=== PATIENT | male | born 1950 | race Native Hawaiian/Other Pacific Islander ===

== ENCOUNTER 2016-11-27 08:08 | Emergency (ER) | payer MEDICARE, OTHER ==
[~2016-11-27] VITALS: Ht 175.3 cm; Wt 90.9 kg
[2016-11-27] MEDS ORDERED: SULF1TAB42 PO (08:20)
[2016-11-27] MEDS ORDERED: LOSA25TA21 PO (08:20)
[2016-11-27] MEDS ORDERED: FENO48TA15 PO (08:20)
[2016-11-27] MEDS ORDERED: ASPI81 PO (08:20)
[2016-11-27] MEDS ORDERED: DOXY100C40 PO (08:20)
[2016-11-27] MEDS ORDERED: AMLO-512 PO (08:20)
[2016-11-27] MEDS ORDERED: CHOL200018 PO (08:20)
[2016-11-27] MEDS ORDERED: TAMS0.4C32 PO (08:20)
[2016-11-27] MEDS ORDERED: MUPI1OIN5 TP (08:20)
[2016-11-27] MEDS ORDERED: DiphenhydrAMINE HCL 50 MG/ML VIAL IVP ONE (09:15)
[2016-11-27] MEDS ORDERED: MethylPREDNISolone SOD SUCC 125 MG/2 ML VIAL IVP ONE (09:15)
[2016-11-27] MEDS ORDERED: FAMOTIDINE 10 MG/ML 2 ML VIAL IVP ONE (09:15)
[2016-11-27 11:00] VITALS: BP 127/75
== END 2016-11-27 11:46 | disposition home or self-care (01) ==
LOC: EMS 08:09
DX: T36.4X5A Adverse effect of tetracyclines, initial encounter (principal); I10 Essential (primary) hypertension; E78.00 Pure hypercholesterolemia, unspecified; N40.0 Benign prostatic hyperplasia without lower urinary tract symptoms; Z87.891 Personal history of nicotine dependence; Z79.82 Long term (current) use of aspirin; Y92.9 Unspecified place or not applicable
CPT/HCPCS: 96374; 96375; 99284; J1200; J2930; J3490

== ENCOUNTER → 2017-09-16 | Outpatient (CLI) | payer OTHER ==
[~2017-09-16] MED LIST: AMLO-512 PO; ASPI81 PO; CHOL200018 PO; DOXY100C40 PO; FENO48TA15 PO; LOSA25TA21 PO; MUPI1OIN5 TP; SULF1TAB42 PO; TAMS0.4C32 PO
== END | disposition home or self-care (01) ==
LOC: RADPV 08:59
PROVIDERS: ATTEND Family Medicine
DX: K80.20 Calculus of gallbladder without cholecystitis without obstruction (principal); N20.0 Calculus of kidney; N28.1 Cyst of kidney, acquired
CPT/HCPCS: 76700

== ENCOUNTER 2018-09-14 10:54 | Emergency (ER) | payer MEDICARE, OTHER ==
[~2018-09-14] VITALS: Ht 170.2 cm; Wt 77.3 kg
[~2018-09-14 10:54] MED LIST changes: -LOSA25TA21 PO; +LOSA25TA41 PO
[2018-09-14] MEDS ORDERED: LORA10TA7 PO (11:00)
[2018-09-14] MEDS ORDERED: OMEP20 PO (11:00)
[2018-09-14] MEDS ORDERED: SIMV-259 PO (11:00)
[2018-09-14 12:17] LABS: BASOPHILS % (AUTO) 1.2 % (0.0-2.0); EOSINOPHILS % (AUTO) 4.6 % (1.0-6.0); HEMATOCRIT 43.6 % (41-53); HEMOGLOBIN 14.9 g/dL (13.5-17.5); LYMPHOCYTES # (AUTO) 1.5 K/uL (1.0-4.8); LYMPHOCYTES % (AUTO) 25.3 % (22.0-44.0); MEAN CORPUSCULAR HEMOGLOBIN 32.5 pg (26.0-34.0); MEAN CORPUSCULAR HGB CONC 34.1 G/dL (31.0-37.0); MEAN CORPUSCULAR VOLUME 95 fL (80-100); MONOCYTES # (AUTO) 0.5 K/uL (0.1-1.0); NEUTROPHILS # (AUTO) 3.7 K/uL (1.8-7.7); NEUTROPHILS % (AUTO) 60.9 % (40.0-70.0); PLATELET COUNT (AUTO) 210 K/uL (150-450); RED BLOOD CELL COUNT(AUTO) 4.58 MIL/uL (4.50-5.90); RED CELL DISTRIBUTION WIDTH 13.4 % (11.5-14.5)
[2018-09-14 12:27] LABS: ANION GAP 4 mmol/L (8-16); CALCIUM, TOTAL 9.3 mg/dL (8.8-10.5); CARBON DIOXIDE 31 mmol/L (22-29); CHLORIDE 104 mmol/L (98-107); CREATININE 1.08 mg/dL (0.60-1.30); GLOMERULAR FILTR. RATE CALC > 60 mL/min (>60); GLUCOSE,RANDOM 98 mg/dL (70-110); POTASSIUM 3.7 mmol/L (3.5-5.1); SODIUM SERUM 139 mmol/L (136-145); UREA NITROGEN, BLOOD 17 mg/dL (7-18)
[2018-09-14 12:33] LABS: ALANINE AMINOTRANSFERASE 32 U/L (12-78); ALBUMIN 3.7 g/dL (3.4-5.0); ALKALINE PHOSPHATASE 47 U/L (46-116); ASPARTATE AMINOTRANSFERASE 22 U/L (15-37); BILIRUBIN,TOTAL 0.4 mg/dL (0.1-1.0); LIPASE 286 U/L (73-393); TOTAL PROTEIN, SERUM 7.4 g/dL (6.4-8.2)
[2018-09-14 14:05] VITALS: BP 136/80
== END 2018-09-14 14:25 | disposition home or self-care (01) ==
LOC: EMS 10:54
DX: R10.31 Right lower quadrant pain (principal); R11.0 Nausea; E78.00 Pure hypercholesterolemia, unspecified; I10 Essential (primary) hypertension; Z87.891 Personal history of nicotine dependence; Z88.1 Allergy status to other antibiotic agents
CPT/HCPCS: 74176